=== PATIENT | male | born 1980 | race Caucasian/White ===

== ENCOUNTER 2017-01-26 17:57 | Inpatient (IN) | payer BC ==
[~2017-01-26] VITALS: Ht 182.9 cm; Wt 90.5 kg
[~2017-01-26 17:57] MED LIST: CEPH500C2 PO; MULT-506 PO; OXYC-57 PO
[2017-01-26] MEDS ORDERED: EPP3/2 PO (18:56)
[2017-01-26] MEDS ORDERED: SODIUM CHLORIDE 0.9% 1000ML 1,000 ML IV ONE ×2 (19:00→22:00)
[2017-01-26 19:08] LABS: HEMATOCRIT 42.1 % (42-52); MEAN CELL VOLUME 91.5 fL (80-100); MEAN CORPUSCULAR HEMOGLOBIN 31.3 pg (25-34); MEAN CORPUSCULAR HGB CONC 34.2 g/dl (32-36); MEAN PLATELET VOLUME 11.3 fL (7.4-10.4); PLATELET COUNT 188 K/uL (130-400); WHITE BLOOD COUNT 24.98 K/uL (4.8-10.8)
[2017-01-26 19:21] LABS: URINE APPEARANCE CLEAR (CLEAR); URINE BILIRUBIN NEG (NEG); URINE COLOR YELLOW; URINE NITRITE NEG (NEG); URINE SPECIFIC GRAVITY 1.007 (1.000-1.030); UROBILINOGEN NEG (NEG); ZZUR CULT IF INDIC CLEAN CATCH NO
[2017-01-26 19:25] LABS: MANUAL MICROSCOPIC REQUIRED? NO; REVIEW REQ? NO
--- NOTE | 2017-01-26 19:26 | EMERGENCY ROOM VISIT NOTE ---
ED Visit Note First contact with patient: 18:25 Resident Physician Supervision Note: I was present with Dr. Richards during the history and exam. I discussed the case with the resident and agree with the findings and plan as documented in the note. Documented By: Kemal Montalvo
[2017-01-26 19:32] LABS: ALB/GLOB RATIO 0.8 (0.9-2); BUN/CREATININE RATIO 7.1 (10-20); CALCIUM 9.4 mg/dl (8.5-10.1); CREATININE 1.2 mg/dl (0.60-1.40); POTASSIUM 3.4 mmol/L (3.5-5.1)
[2017-01-26] MEDS ORDERED: ACET-1256 PO (19:39)
[2017-01-26] MEDS ORDERED: IBUP-103 PO (19:39)
--- NOTE | 2017-01-26 19:46 | DIAGNOSTIC IMAGING REPORT ---
CHEST 2 VIEWS ROUTINE CLINICAL HISTORY: Fever, elevated white count, tachycardia. COMPARISON STUDY: 11/18/2013 FINDINGS: The cardiac and mediastinal contours are normal. There is no evidence of focal pulmonary consolidation. There is no evidence of failure. No pleural effusions are visualized.[ IMPRESSION: No active disease in the chest. Electronically signed by: Sukhjinder Null M.D. 01/26/2017 7:45 PM Dictated Date/Time: 01/26/2017 7:44 PM
--- NOTE | 2017-01-26 20:00 | EMERGENCY ROOM VISIT NOTE ---
History First contact with patient: 18:25 Chief Complaint: FEVER Stated Complaint: HIGH FEVER,PCP SAID TO CHECK WBC History of Present Illness The patient is a 36 year old male who presents to the Emergency Room with complaints of fever. The patient states that 2 days ago he is experiencing diarrhea. He noted that the diarrhea gradually improved on its own after 2 days but since then over the past day he has had felt feverish. He saw his PCP today and apparently had a temperature of 103.5. PCP did lab work and remarked WBC count of 26, and an ESR 33. He is sent to the emergency room for further evaluation. He denies any shortness of breath, productive cough, wheezing. The patient denies any chest pain, palpitations, presyncope or syncope, orthopnea or lower extremity edema. He has not had any gastrointestinal symptoms including nausea, vomiting or constipation. As above he had diarrhea over the past 2 days but that is resolved. The patient has not had any dysuria or urinary frequency. She states that he has had a poor appetite but is been able to keep food and fluids down. Review of Systems See HPI for pertinent positives & negatives. A total of 10 systems reviewed and were otherwise negative. 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) Current/Historical Medications Scheduled Multivitamin (Multivitamin), 1 TAB PO DAILY Scheduled PRN Acetaminophen (Tylenol), 1,000 MG PO Q6 PRN for Pain or Fever Epinephrine (Epipen 2-Star), 0.3 MG PO UD PRN for ALLERGIC REACTION Ibuprofen Tab (Advil), 400 MG PO TID PRN for pt Allergies Bee stings Physical Exam Vital Signs Date Time Temp Pulse Resp B/P (MAP) Pulse Ox O2 Delivery O2 Flow Rate FiO2 01/26/17 22:40 38.6 103 20 131/79 100 01/26/17 21:30 38.1 100 20 128/85 100 Room Air 01/26/17 20:10 37.6 102 18 121/78 96 01/26/17 18:07 37.8 109 20 159/75 99 Room Air Pain Rating (0-10): 0 Physical Exam Constitutional: Vital signs as above were reviewed. Eyes: Pupils equal, round, and reactive to light. Extraocular muscles are intact. No proptosis. No photophobia. ENT: Mucous membranes are moist. Oropharynx is clear. No sinus tenderness. TMs are clear bilaterally. Cardiovascular: Heart with a regular rate and rhythm. Pulses are palpable and symmetric in all 4 extremities. No pedal edema appreciated. Respiratory: Lungs clear to auscultation bilaterally. No wheezes, rales, or rhonchi appreciated. No accessory muscle use. No retractions. No increased work of breathing. GI: Abdomen soft, nontender, nondistended. Normal active bowel sounds. No abdominal hernias appreciated. No rebound. No guarding. : No CVA tenderness appreciated. The patient has Gold mena powder on his penis, a long-standing rash No testicular tenderness No meatal discharge Musculoskeletal: No midline cervical or vertebral tenderness. No gross deformities. No bony tenderness. No calf swelling or tenderness. Integumentary: Warm, dry, no rashes appreciated. Neurological: Patient awake, alert, and oriented x 3. Cranial nerves two through 12 grossly intact. Motor 5 out of 5 strength bilateral upper and lower extremities. Lymph: No cervical lymphadenopathy appreciated. Medical Decision & Procedures ER Provider Diagnostic Interpretation: [~ rep ct add3]] CHEST 2 VIEWS ROUTINE CLINICAL HISTORY: Fever, elevated white count, tachycardia. COMPARISON STUDY: 11/18/2013 FINDINGS: The cardiac and mediastinal contours are normal. There is no evidence of focal pulmonary consolidation. There is no evidence of failure. No pleural effusions are visualized.[ IMPRESSION: No active disease in the chest. Electronically signed by: Sukhjinder Null M.D. 01/26/2017 7:45 PM Dictated Date/Time: 01/26/2017 7:44 PM The status of this report is Signed. Draft = Not yet reviewed or approved by Radiologist. Signed = Reviewed and approved by Radiologist. Laboratory Results Test 01/26/17 18:40 01/26/17 19:05 01/26/17 19:40 01/26/17 22:00 Red Blood Cell Morphology Unremarkable Peripheral Blood Smear Path Consult Erythrocyte Sedimentation Rate 47 mm/hr (0-14) Prothrombin Time 11.2 SECONDS (9.0-12.0) Prothromb Time International Ratio 1.0 (0.9-1.1) Activated Partial Thromboplast Time 33.8 SECONDS (21.0-31.0) Partial Thromboplastin Ratio 1.3 Total Bilirubin 0.9 mg/dl (0.2-1) Aspartate Amino Transf (AST/SGOT) 16 U/L (15-37) Alanine Aminotransferase (ALT/SGPT) 19 U/L (12-78) Alkaline Phosphatase 81 U/L (45-117) Total Creatine Kinase 102 U/L (39-308) C-Reactive Protein 11.10 mg/dl (0-0.29) Total Protein 8.1 gm/dl (6.4-8.2) Albumin 3.7 gm/dl (3.4-5.0) Globulin 4.4 gm/dl (2.5-4.0) Albumin/Globulin Ratio 0.8 (0.9-2) Lyme Disease IgG Antibody NEG (NEG) Lyme Disease IgM Antibody NEG (NEG) Urine Color YELLOW Urine Appearance CLEAR (CLEAR) Urine pH 7.0 (4.5-7.5) Urine Specific [place] 1.007 (1.000-1.030) Urine Protein 1+ (NEG) Urine Glucose (UA) NEG (NEG) Urine Ketones TRACE (NEG) Urine Occult Blood TRACE (NEG) Urine Nitrite NEG (NEG) Urine Bilirubin NEG (NEG) Urine Urobilinogen NEG (NEG) Urine Leukocyte Esterase TRACE (NEG) Urine WBC (Auto) 5-10 /hpf (0-5) Urine RBC (Auto) 0-4 /hpf (0-4) Urine Hyaline Casts (Auto) 0 /lpf (0-5) Urine Epithelial Cells (Auto) 10-20 /lpf (0-5) Urine Bacteria (Auto) NEG (NEG) Lactic Acid Level 0.9 mmol/L (0.4-2.0) Influenza Type A (RT-PCR) Neg for Influ A (NEG) Influenza Type A Antigen Neg for Influ A (NEG) Influenza Type B Antigen Neg for Influ B (NEG) Influenza Type B (RT-PCR) Neg for Influ B (NEG) Medications Administered Medications (Trade) Dose Ordered Sig/Holden Route Start Time Stop Time Status Last Admin Dose Admin Sodium Chloride 1,000 ml @ 999 mls/hr Q1H1M ONCE IV 01/26/17 19:00 01/26/17 20:00 DC 10/10/17 18:59 999 MLS/HR Acetaminophen (Tylenol Tab) 1,000 mg NOW STAT PO 01/26/17 21:51 01/26/17 21:52 DC 01/26/17 21:58 1,000 MG Sodium Chloride 1,000 ml @ 999 mls/hr Q1H1M ONCE IV 01/26/17 22:00 01/26/17 23:00 DC 01/26/17 22:55 999 MLS/HR Acetaminophen (Tylenol Tab) 650 mg Q4H PRN PO 01/26/17 23:00 02/25/17 22:59 01/27/17 11:42 650 MG ED Course 18:40 - Patient was seen by Dr. Peter Richards, [address] Medicine 19:00 - Labs ordered Discussed case with Dr. Tal Montalvo, Attending Physician 20:00 - CPK added 20:30 - labs reviewed; please see confirmed to be elevated at 24 ` Chest x-ray grossly normal; UA remarkable for leukocyte esterase without nitrites 21:45 - Lyme and Flu ordered on patient 22:00 - Decision made to admit patient Discussed case with Dr. Chaves who will evaluate and admit the patient. Medical Decision The patient is a healthy 36-year-old male, presents with fevers for 1 day and leukocytosis of 26 found in the outpatient setting. PCP was concerned and requested patient be evaluated in the emergency department for possible source. The patient was evaluated in the emergency department. He did have elevated temperature and was mildly tachycardic. Interestingly on exam he appeared fairly well without overt signs of systemic toxicity. Initial labs did confirm the presence of a leukocytosis at 24. BMP was remarkable for a mildly decreased sodium at 134 and a mildly decreased potassium at 3.4. Chest x-ray was unimpressive did not reveal pneumonia as a source. The UA was also fairly unremarkable with only leukocyte esterase is positive but in the absence of urinary symptoms I would not attribute his leukocytosis to UTI unless he has bacterial growth in the culture. Blood cultures were promptly obtained however we did not administer empiric antibiotics as we cannot identify clear source of the infection, and the patient actually appeared fairly well at the bedside. Decision was made to admit the patient for further workup and evaluation. Additional studies including rapid flu testing and Lyme testing for added to his panel as well as a pro-calcitonin, as per my discussion with Dr. Chaves when he agreed to accept the patient Head Trauma GCS Score: 15 Medication Reconcilliation Current Medication List: was personally reviewed by me Blood Pressure Screening Patient's blood pressure: Elevated blood pressure Blood pressure disposition: Elevated BP felt to be situational Impression Primary Impression: SIRS (systemic inflammatory response syndrome) Departure Information Dispostion Being Evaluated By Hospitalist Referrals Pa Hester M.D. (PCP) Patient Instructions [facility]
[2017-01-26 20:04] LABS: BASO % 0.1 %; BASO ABS # 0.03 K/uL (0-0.2); COMPLETE YES; IG% 0.5 %; LYMPH ABS # 1.76 K/uL (1.2-3.4); MONO % 9.1 %; NEUT % 83.3 %
[2017-01-26] MEDS ORDERED: ACETAMINOPHEN 500 MG TAB PO STA (21:51)
[2017-01-26 22:29] LABS: LYME DISEASE AB IGG NEG (NEG); LYME DISEASE AB IGM NEG (NEG)
--- NOTE | 2017-01-26 22:59 | History and Physical ---
History & Physical Date & Time of Service: Jan 26, 2017 at 22:59 Chief Complaint: High Fever,Pcp Said To Check Wbc Primary Care Physician: Pa Hester M.D. History of Present Illness Source: patient Patient is a 36 Yr male with GERD s/p Jeffrey Fundoplication and no other significant PMH presents with history of fever, chills since 2-3 days duration. Patient had diarrhea few days which resolved 2 days ago. Patient visited his PCP 's office and was found to be febrile- 103.5 F and elevated WBC and was sent to ED for further evaluation. Patient states patient has been having Epson Salt baths since November and states his does prostatic massage every other day as he believed that it would help him with enlarged prostate which is not officially diagnosed not he has seen an Urologist in the past. Patient states he had Epididymitis in Set which e was treated with Levaquin. Currently denies any rash, urethral discharge, dysuria, hematuria, weak urinary stream. Also denies any chest pain, SOB, abd pain, cough, wheezing, palpitations, dizziness, nausea, vomiting. 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 A total of 10 systems reviewed and were otherwise negative. Physical Exam Vital Signs Date Time Temp Pulse Resp B/P (MAP) Pulse Ox O2 Delivery O2 Flow Rate FiO2 01/26/17 22:40 38.6 103 20 131/79 100 01/26/17 21:30 38.1 100 20 128/85 100 Room Air 01/26/17 20:10 37.6 102 18 121/78 96 01/26/17 18:07 37.8 109 20 159/75 99 Room Air General Appearance: WD/WN, no apparent distress Head: normocephalic, atraumatic Eyes: normal inspection, PERRL, EOMI, sclerae normal ENT: normal ENT inspection, hearing grossly normal Neck: supple, no JVD, trachea midline Respiratory/Chest: chest non-tender, lungs clear, normal breath sounds, no respiratory distress, no accessory muscle use Cardiovascular: regular rate, rhythm, no edema, no murmur, + tachycardia Abdomen/GI: normal bowel sounds, non tender, soft Genitourinary - Male: normal male genitalia, no urethral discharge Back: normal inspection Extremities/Musculoskelatal: normal inspection, no pedal edema Neurologic/Psych: historical records administrator II-XII nml as tested, no motor/sensory deficits, alert, normal mood/affect, oriented x 3 Skin: normal color, warm/dry Lymphatic: no adenopathy Diagnostics Laboratory Results Results Past 24 Hours Test 01/26/17 18:40 01/26/17 19:05 01/26/17 19:40 01/26/17 22:00 Range/Units White Blood Count 24.98 4.8-10.8 K/uL Red Blood Count 4.60 4.7-6.1 M/uL Hemoglobin 14.4 14.0-18.0 g/dL Hematocrit 42.1 42-52 % Mean Corpuscular Volume 91.5 80-100 fL Mean Corpuscular Hemoglobin 31.3 25-34 pg Mean Corpuscular Hemoglobin Concent 34.2 32-36 g/dl Platelet Count 188 130-400 K/uL Mean Platelet Volume 11.3 7.4-10.4 fL Neutrophils (%) (Auto) 83.3 % Lymphocytes (%) (Auto) 7.0 % Monocytes (%) (Auto) 9.1 % Eosinophils (%) (Auto) 0.0 % Basophils (%) (Auto) 0.1 % Neutrophils # (Auto) 20.80 1.4-6.5 K/uL Lymphocytes # (Auto) 1.76 1.2-3.4 K/uL Monocytes # (Auto) 2.27 0.11-0.59 K/uL Eosinophils # (Auto) 0.00 0-0.5 K/uL Basophils # (Auto) 0.03 0-0.2 K/uL RDW Standard Deviation 42.9 36.4-46.3 fL RDW Coefficient of Variation 12.8 11.5-14.5 % Immature Granulocyte % (Auto) 0.5 % Immature Granulocyte # (Auto) 0.12 0.00-0.02 K/uL Red Blood Cell Morphology Unremarkable Erythrocyte Sedimentation Rate 47 0-14 mm/hr Sodium Level 134 136-145 mmol/L Potassium Level 3.4 3.5-5.1 mmol/L Chloride Level 100 98-107 mmol/L Carbon Dioxide Level 28 21-32 mmol/L Anion Gap 7.0 3-11 mmol/L Blood Urea Nitrogen 9 7-18 mg/dl Creatinine 1.20 0.60-1.40 mg/dl Est Creatinine Clear Calc Drug Dose 92.5 ml/min Estimated GFR () 89.0 Estimated GFR (Non- 76.8 BUN/Creatinine Ratio 7.1 10-20 Random Glucose 113 70-99 mg/dl Calcium Level 9.4 8.5-10.1 mg/dl Total Bilirubin 0.9 0.2-1 mg/dl Aspartate Amino Transf (AST/SGOT) 16 15-37 U/L Alanine Aminotransferase (ALT/SGPT) 19 12-78 U/L Alkaline Phosphatase 81 45-117 U/L Total Creatine Kinase 102 39-308 U/L Total Protein 8.1 6.4-8.2 gm/dl Albumin 3.7 3.4-5.0 gm/dl Globulin 4.4 2.5-4.0 gm/dl Albumin/Globulin Ratio 0.8 0.9-2 Procalcitonin 1.54 0-0.5 ng/ml Lyme Disease IgG Antibody NEG NEG Lyme Disease IgM Antibody NEG NEG Urine Color YELLOW Urine Appearance CLEAR CLEAR Urine pH 7.0 4.5-7.5 Urine Specific [place] 1.007 1.000-1.030 Urine Protein 1+ NEG Urine Glucose (UA) NEG NEG Urine Ketones TRACE NEG Urine Occult Blood TRACE NEG Urine Nitrite NEG NEG Urine Bilirubin NEG NEG Urine Urobilinogen NEG NEG Urine Leukocyte Esterase TRACE NEG Urine WBC (Auto) 5-10 0-5 /hpf Urine RBC (Auto) 0-4 0-4 /hpf Urine Hyaline Casts (Auto) 0 0-5 /lpf Urine Epithelial Cells (Auto) 10-20 0-5 /lpf Urine Bacteria (Auto) NEG NEG Lactic Acid Level 0.9 0.4-2.0 mmol/L Influenza Type A Antigen Neg for Influ A NEG Influenza Type B Antigen Neg for Influ B NEG Microbiology Results 01/26/17 Blood Culture, Received Pending 01/26/17 Blood Culture, Received Pending 01/26/17 Urine Culture, Received Pending Diagnostic Radiology CXR: No active disease in the chest. Impression Assessment and Plan SIRS: Presented with Fever, Tachycardia, leukocytosis No obvious source. Likely source could be secondary to prostatic massage Start on IV zosyn empirically Lactate: normal, elevated procalcitonin IV fluids Blood/Urine culture Lyme/Influenza negative [place] test and Neisseria negative (Outpatient) Follow up with pending Outpatient labs MRSA screen pending Hypokalemia: Replace and monitor H/O GERD S/P Jeffrey Fundoplication Stable Not on any meds H/O Insomnia: Previously on amitriptyline (Stopped 6 months ago) DVT Px: Lovenox SQ Code Status: Full Code Disposition; Monitor in Tele
[2017-01-26] MEDS ORDERED: ONDANSETRON INJ 2 MG/ML 2 ML VIAL IV PRN (23:00)
[2017-01-26 23:08] LABS: C-REACTIVE PROTEIN 11.1 mg/dl (0-0.29)
[2017-01-26] MEDS ORDERED: PIPERACILL/TAZOBAC CONSULT ACTIVE PRN (23:30)
[2017-01-26 23:46] VITALS: BP 130/73; PULSE 100; TEMP 38.4; Ht 182.9 cm; Wt 90.5 kg
[2017-01-26 23:56] LABS: INFLUENZA A PCR Neg for Influ A (NEG); INFLUENZA B PCR Neg for Influ B (NEG)
[2017-01-27] VITALS (9 sets, daily range): BP systolic 107–133; BP diastolic 66–92; PULSE 77–103; TEMP 37–37.9; O2SAT 94–96
[2017-01-27] MEDS ORDERED: POTASSIUM CHLORIDE 10 MEQ TABCR PO SCH
[2017-01-27 00:21] LABS: PARTIAL THROMBOPLASTIN RATIO 1.3; PROTHROMBIN TIME (PATIENT) 11.2 SECONDS (9.0-12.0)
[2017-01-27] MEDS: ACETAMINOPHEN 325 MG TAB PO PRN ×5 (00:22→22:06)
[2017-01-27] MEDS ORDERED: PIPERACILL/TAZOBAC IV 3.375 GM in DEXTROSE 5% 100ML IV ONE (01:15)
[2017-01-27] MEDS: NSS + 20MEQ KCL 1000ML 1,000 ML IV SCH ×3 (02:38→21:01)
[2017-01-27] MEDS: PIPERACILL/TAZOBAC IV 3.375 GM in DEXTROSE 5% 100ML 100 ML IV SCH ×3 (05:39→21:02)
[2017-01-27] MEDS: ENOXAPARIN 40 MG/0.4 ML SYR SC SCH (07:55)
[2017-01-27 08:15] LABS: HEMATOCRIT 39.6 % (42-52); MEAN CELL VOLUME 91.9 fL (80-100); MEAN CORPUSCULAR HEMOGLOBIN 31.1 pg (25-34); MEAN CORPUSCULAR HGB CONC 33.8 g/dl (32-36); MEAN PLATELET VOLUME 10.8 fL (7.4-10.4); PLATELET COUNT 186 K/uL (130-400); RED BLOOD COUNT 4.31 M/uL (4.7-6.1); WHITE BLOOD COUNT 22.09 K/uL (4.8-10.8)
[2017-01-27 08:36] LABS: BUN/CREATININE RATIO 8.1 (10-20); CALCIUM 8.8 mg/dl (8.5-10.1); MAGNESIUM 2.2 mg/dl (1.8-2.4); POTASSIUM 3.8 mmol/L (3.5-5.1)
[2017-01-27 08:56] LABS: BASO % 0.1 %; BASO ABS # 0.02 K/uL (0-0.2); COMPLETE YES; IG% 0.5 %; LYMPH % 7.8 %; LYMPH ABS # 1.72 K/uL (1.2-3.4); MONO % 10.6 %; VACUOLIZATION 1+
[2017-01-27] MEDS ORDERED: OPTIRAY 320 IV PRN (11:45)
[2017-01-27] MEDS ORDERED: LEVOFLOXACIN / D5W 750 MG in PREMIXED IN D5W 150 ML IV SCH (13:00)
--- NOTE | 2017-01-27 13:03 | DIAGNOSTIC IMAGING REPORT ---
ABD/PELVIS IV CONTRAST ONLY CLINICAL HISTORY: 36 years-old Male presenting with fever of unknown origin, possible prostatitis. TECHNIQUE: Multidetector CT of the abdomen and pelvis was performed after the administration of intravenous contrast. IV contrast: 93 mL of Optiray 320. A dose lowering technique was used consistent with the principles of ALARA (as low as reasonably achievable). COMPARISON: 11/18/2013. CT DOSE (mGy.cm): The estimated cumulative dose is 733.54. FINDINGS: Rn Stars topogram: Unremarkable. Lung bases: Minimal dependent changes likely atelectasis. Normal heart size. No pericardial or pleural effusion. Liver: Normal morphology. No liver lesion. Patent hepatic vasculature. Biliary: No intrahepatic or extrahepatic biliary ductal dilatation. Normal gallbladder. Pancreas: Normal. Spleen: Normal. Adrenal glands: Normal. Kidneys and ureters: Heterogeneity of enhancement of the upper pole of the right kidney with relative hypoperfusion and mild regional perinephric fat stranding. A similar focal regional hypoperfusion heterogeneous region is noted at the lateral lower pole of the left kidney. No hydronephrosis. Mild urothelial thickening may be present. Excretion of contrast from the bilateral kidneys. Distal ureters poorly assessed secondary to paucity of intra-abdominal fat. Allowing for this, the left ureter is dilated throughout. Bladder: Mild circumferential bladder wall thickening. Pelvic organs: Prostate is enlarged for age with distended seminal vesicles. Bowel: Evaluation of the bowel is limited given the absence of oral contrast. Nondependent gas in the right lower quadrant is likely within small bowel. Mild wall thickening of the terminal ileum is difficult to exclude. The appendix is not clearly visualized. Postsurgical changes at the gastroesophageal junction may suggest prior Jeffrey fundoplication. Peritoneal cavity: Small free fluid in the pelvis. Lymph nodes: No enlarged lymph nodes in the abdomen or pelvis. Vasculature: Aorta and IVC patent and normal in caliber. Abdominal wall: Mild anasarca. Musculoskeletal: Normal. IMPRESSION: 1. Focal heterogeneity and hypoperfusion at the upper pole the right kidney and lower pole the left kidney combined with mild perinephric stranding and bladder wall thickening is most suggestive of lobar nephronia/focal pyelonephritis. Correlate with urinalysis. No renal abscess. Diffuse dilation of the left ureter without evidence of hydronephrosis or obstructing calculus or mass, possibly reactive hypoperistalsis. 2. The prostate is enlarged for the patient's age. Prostatitis is difficult to exclude and would be better evaluated with contrast-enhanced prostate MR. 3. Small amount of free fluid in the pelvis is likely reactive. Electronically signed by: Brendon Gatica M.D. 01/27/2017 1:01 PM Dictated Date/Time: 01/27/2017 12:53 PM
--- NOTE | 2017-01-27 13:03 | DIAGNOSTIC IMAGING REPORT ---
CT SCAN OF THE CHEST WITH IV CONTRAST CLINICAL HISTORY: Fever. COMPARISON STUDY: Chest x-ray dated 01/26/2017. TECHNIQUE: Following the IV administration of 93 cc of Optiray 320, CT scan of the thorax was performed from the thoracic inlet to the upper abdomen. Images are reviewed in the axial, sagittal, and coronal planes. IV contrast was administered without complication. A dose lowering technique was utilized adhering to the principles of ALARA. CT DOSE: 733.54 mGy.cm FINDINGS: Thyroid: Imaged portions of the thyroid gland are normal in size and attenuation. Thoracic aorta: The thoracic aorta is normal in caliber and demonstrates standard 3-vessel arch anatomy. No dissection is seen. Pulmonary vasculature: The pulmonary trunk is normal in caliber. There are no filling defects identified in the central pulmonary vessels to indicate pulmonary embolus. Note that this examination was not protocoled for evaluation of the pulmonary arteries. Heart: The heart is normal in size and configuration, and without pericardial effusion. Lungs and pleural spaces: There are trace pleural effusions. No airspace consolidation is seen typical for pneumonia. The trachea and central airways are clear. Mediastinum: There is no mediastinal lymphadenopathy. Anupama: Clear. Axillae: There is no axillary lymphadenopathy. Upper abdomen: Postoperative change is seen at the gastroesophageal junction. There is heterogeneous diminished perfusion in the upper pole the right kidney with mild surrounding inflammation. Skeletal structures: No lytic or blastic bony lesions are seen. Trace gas is present within the joint space of the right shoulder. IMPRESSION: 1. There is no airspace consolidation identified typical for pneumonia. Trace pleural effusions are noted. 2. There is heterogeneously diminished perfusion of the upper pole of the right kidney which is only partially imaged. The appearance suggests pyelonephritis. Correlation with clinical findings and urinalysis will be required. See report of abdominal CT performed concurrently for detailed intra-abdominal findings. Electronically signed by: Mannie Alicea M.D. 01/27/2017 1:02 PM Dictated Date/Time: 01/27/2017 12:55 PM
[2017-01-27] MEDS: LACTOBACILLUS ACIDOPHILUS (FLORANEX) TAB PO SCH (17:10)
--- NOTE | 2017-01-27 18:34 | Progress Note ---
Internal Med Progress Note Date of Service: Jan 27, 2017. Provider Documentation: SUBJECTIVE: spiking temp since last few days no sob or cough no nausea or diarrhea no abdominal pain says his was giving prostate massage somewhat shaky OBJECTIVE: Vital Signs-as noted below Exam: General-alert and awake. Not in distress ENT-normal hearing Neck-no neck masses Lungs-cta b/l no wheezing or crackles Heart-s1 and s2 heard regular rate and rhythm no murmurs Abdomen-soft bowel sounds present non tender no distension Extremities-no erythema no edema Neuro-alert and awake moves extremities Lab data as noted below. ASSESSMENT & PLAN: Pyelonephritis Prostatitis?: Presented with Fever, Tachycardia, leukocytosis Lactate: normal, elevated procalcitonin IV fluids Lyme/Influenza negative Kern test and Neisseria negative (Outpatient) currently on iv Zosyn and Levaquin as per patient his was giving prostate massage ct chest unremarkable ct abd/pelvis shows pyelonephritis and possible prostatitis f/u cx await urology inputs Hypokalemia: Replace and monitor H/O GERD S/P Jeffrey Fundoplication Stable Not on any meds H/O Insomnia: Previously on amitriptyline (Stopped 6 months ago) DVT Px: Lovenox SQ Code Status: Full Code DISPOSITION to be determined Vital Signs: Date Time Temp Pulse Resp B/P (MAP) Pulse Ox O2 Delivery O2 Flow Rate FiO2 01/27/17 16:00 Room Air 01/27/17 14:55 37.4 96 18 126/77 (93) 95 01/27/17 11:50 Room Air 01/27/17 11:50 37.4 90 18 119/76 (90) 96 Room Air 01/27/17 09:00 37.2 01/27/17 07:59 37.9 87 18 107/67 (80) 94 Room Air 01/27/17 07:45 Room Air 01/27/17 06:26 37.8 01/27/17 04:00 Room Air 01/27/17 04:00 37.1 84 18 133/92 (106) 96 Room Air 01/27/17 02:05 37.0 01/26/17 23:46 38.4 100 17 130/73 Room Air 94.0 01/26/17 23:44 105 20 128/82 96 01/26/17 22:40 38.6 103 20 131/79 100 01/26/17 21:30 38.1 100 20 128/85 100 Room Air 01/26/17 20:10 37.6 102 18 121/78 96 Lab Results: Results Past 24 Hours Test 01/26/17 18:40 01/26/17 19:05 01/26/17 19:40 01/26/17 22:00 Range/Units White Blood Count 24.98 4.8-10.8 K/uL Red Blood Count 4.60 4.7-6.1 M/uL Hemoglobin 14.4 14.0-18.0 g/dL Hematocrit 42.1 42-52 % Mean Corpuscular Volume 91.5 80-100 fL Mean Corpuscular Hemoglobin 31.3 25-34 pg Mean Corpuscular Hemoglobin Concent 34.2 32-36 g/dl Platelet Count 188 130-400 K/uL Mean Platelet Volume 11.3 7.4-10.4 fL Neutrophils (%) (Auto) 83.3 % Lymphocytes (%) (Auto) 7.0 % Monocytes (%) (Auto) 9.1 % Eosinophils (%) (Auto) 0.0 % Basophils (%) (Auto) 0.1 % Neutrophils # (Auto) 20.80 1.4-6.5 K/uL Lymphocytes # (Auto) 1.76 1.2-3.4 K/uL Monocytes # (Auto) 2.27 0.11-0.59 K/uL Eosinophils # (Auto) 0.00 0-0.5 K/uL Basophils # (Auto) 0.03 0-0.2 K/uL RDW Standard Deviation 42.9 36.4-46.3 fL RDW Coefficient of Variation 12.8 11.5-14.5 % Immature Granulocyte % (Auto) 0.5 % Immature Granulocyte # (Auto) 0.12 0.00-0.02 K/uL Red Blood Cell Morphology Unremarkable Peripheral Blood Smear Path Consult Erythrocyte Sedimentation Rate 47 0-14 mm/hr Prothrombin Time 11.2 9.0-12.0 SECONDS Prothromb Time International Ratio 1.0 0.9-1.1 Activated Partial Thromboplast Time 33.8 21.0-31.0 SECONDS Partial Thromboplastin Ratio 1.3 Sodium Level 134 136-145 mmol/L Potassium Level 3.4 3.5-5.1 mmol/L Chloride Level 100 98-107 mmol/L Carbon Dioxide Level 28 21-32 mmol/L Anion Gap 7.0 3-11 mmol/L Blood Urea Nitrogen 9 7-18 mg/dl Creatinine 1.20 0.60-1.40 mg/dl Est Creatinine Clear Calc Drug Dose 92.5 ml/min Estimated GFR () 89.0 Estimated GFR (Non- 76.8 BUN/Creatinine Ratio 7.1 10-20 Random Glucose 113 70-99 mg/dl Calcium Level 9.4 8.5-10.1 mg/dl Total Bilirubin 0.9 0.2-1 mg/dl Aspartate Amino Transf (AST/SGOT) 16 15-37 U/L Alanine Aminotransferase (ALT/SGPT) 19 12-78 U/L Alkaline Phosphatase 81 45-117 U/L Total Creatine Kinase 102 39-308 U/L C-Reactive Protein 11.10 0-0.29 mg/dl Total Protein 8.1 6.4-8.2 gm/dl Albumin 3.7 3.4-5.0 gm/dl Globulin 4.4 2.5-4.0 gm/dl Albumin/Globulin Ratio 0.8 0.9-2 Procalcitonin 1.54 0-0.5 ng/ml Lyme Disease IgG Antibody NEG NEG Lyme Disease IgM Antibody NEG NEG Urine Color YELLOW Urine Appearance CLEAR CLEAR Urine pH 7.0 4.5-7.5 Urine Specific [place] 1.007 1.000-1.030 Urine Protein 1+ NEG Urine Glucose (UA) NEG NEG Urine Ketones TRACE NEG Urine Occult Blood TRACE NEG Urine Nitrite NEG NEG Urine Bilirubin NEG NEG Urine Urobilinogen NEG NEG Urine Leukocyte Esterase TRACE NEG Urine WBC (Auto) 5-10 0-5 /hpf Urine RBC (Auto) 0-4 0-4 /hpf Urine Hyaline Casts (Auto) 0 0-5 /lpf Urine Epithelial Cells (Auto) 10-20 0-5 /lpf Urine Bacteria (Auto) NEG NEG Lactic Acid Level 0.9 0.4-2.0 mmol/L Influenza Type A (RT-PCR) Neg for Influ A NEG Influenza Type A Antigen Neg for Influ A NEG Influenza Type B Antigen Neg for Influ B NEG Influenza Type B (RT-PCR) Neg for Influ B NEG Test 01/27/17 07:58 Range/Units White Blood Count 22.09 4.8-10.8 K/uL Red Blood Count 4.31 4.7-6.1 M/uL Hemoglobin 13.4 14.0-18.0 g/dL Hematocrit 39.6 42-52 % Mean Corpuscular Volume 91.9 80-100 fL Mean Corpuscular Hemoglobin 31.1 25-34 pg Mean Corpuscular Hemoglobin Concent 33.8 32-36 g/dl Platelet Count 186 130-400 K/uL Mean Platelet Volume 10.8 7.4-10.4 fL Neutrophils (%) (Auto) 81.0 % Lymphocytes (%) (Auto) 7.8 % Monocytes (%) (Auto) 10.6 % Eosinophils (%) (Auto) 0.0 % Basophils (%) (Auto) 0.1 % Neutrophils # (Auto) 17.91 1.4-6.5 K/uL Lymphocytes # (Auto) 1.72 1.2-3.4 K/uL Monocytes # (Auto) 2.34 0.11-0.59 K/uL Eosinophils # (Auto) 0.00 0-0.5 K/uL Basophils # (Auto) 0.02 0-0.2 K/uL RDW Standard Deviation 43.5 36.4-46.3 fL RDW Coefficient of Variation 12.9 11.5-14.5 % Immature Granulocyte % (Auto) 0.5 % Immature Granulocyte # (Auto) 0.10 0.00-0.02 K/uL Toxic Vacuolation 1+ Sodium Level 138 136-145 mmol/L Potassium Level 3.8 3.5-5.1 mmol/L Chloride Level 108 98-107 mmol/L Carbon Dioxide Level 25 21-32 mmol/L Anion Gap 5.0 3-11 mmol/L Blood Urea Nitrogen 8 7-18 mg/dl Creatinine 1.00 0.60-1.40 mg/dl Est Creatinine Clear Calc Drug Dose 111.0 ml/min Estimated GFR () 110.9 Estimated GFR (Non- 95.7 BUN/Creatinine Ratio 8.1 10-20 Random Glucose 114 70-99 mg/dl Calcium Level 8.8 8.5-10.1 mg/dl Magnesium Level 2.2 1.8-2.4 mg/dl Procalcitonin 2.76 0-0.5 ng/ml Microbiology Results 01/26/17 Blood Culture, Received Pending 01/26/17 Blood Culture, Received Pending 01/27/17 MRSA DNA Surveillance Screen - Final, Complete Specimen Negative for MRSA by DNA Probe 01/26/17 Urine Culture - Preliminary, Resulted NO GROWTH - LESS THAN 1,000 COLONIES/...
--- NOTE | 2017-01-27 19:02 | Urology Consultation ---
History General Date of Service: Jan 27, 2017. Chief Complaint: fever Primary Care Physician: Pa Hester M.D. Pt seen a urologist before?: Yes If yes, why?: penile rash History of Present Illness I am asked by Dr Calhoun to evaluate and treat patient for fever. He began this illness with diarrhea on Wednesday 5 days ago. It resolved in a day. Then on Wednesday 3 days ago he began fevering. He also had some flank pain. he felt generally ill. He has had rigors. He has had little to no dysuria. He has chronic burning at tip of penis and medicates the skin there with gold mena powder. I saw him for a penile rash and urethral irritation in 2013. I did not find any pathology at that time. He had a right epididymal pain and swelling in november 2016. he had a scrotal ultrasound (which he was told was normal) and was treated with 10 days of levaquin lasting into december. he also had frequent colds in november and each head cold seemed to impair his urinary flow and to cause decreased erectile function. He started a herbal supplement for prostate health and it seemed to only worsen his symptoms. He read about and decided to try a home remedy of prostate massage as he felt on anal self exam that his prostate felt enlarged. He does feel that his urinary flow and erections improved with prostate massage. He never did see any purulent material expressed into the urethra after prostate massage. He never found the prostate massage to be painful. Here today he does not have dysuria, or flank pain. He feels generally poorly when he fevers. Imaging Imaging: CT Laboratory Results Past 24 Hours Test 01/26/17 19:05 01/26/17 19:40 01/26/17 22:00 01/27/17 07:58 Range/Units Urine Color YELLOW Urine Appearance CLEAR CLEAR Urine pH 7.0 4.5-7.5 Urine Specific [place] 1.007 1.000-1.030 Urine Protein 1+ NEG Urine Glucose (UA) NEG NEG Urine Ketones TRACE NEG Urine Occult Blood TRACE NEG Urine Nitrite NEG NEG Urine Bilirubin NEG NEG Urine Urobilinogen NEG NEG Urine Leukocyte Esterase TRACE NEG Urine WBC (Auto) 5-10 0-5 /hpf Urine RBC (Auto) 0-4 0-4 /hpf Urine Hyaline Casts (Auto) 0 0-5 /lpf Urine Epithelial Cells (Auto) 10-20 0-5 /lpf Urine Bacteria (Auto) NEG NEG Lactic Acid Level 0.9 0.4-2.0 mmol/L Influenza Type A (RT-PCR) Neg for Influ A NEG Influenza Type A Antigen Neg for Influ A NEG Influenza Type B Antigen Neg for Influ B NEG Influenza Type B (RT-PCR) Neg for Influ B NEG White Blood Count 22.09 4.8-10.8 K/uL Red Blood Count 4.31 4.7-6.1 M/uL Hemoglobin 13.4 14.0-18.0 g/dL Hematocrit 39.6 42-52 % Mean Corpuscular Volume 91.9 80-100 fL Mean Corpuscular Hemoglobin 31.1 25-34 pg Mean Corpuscular Hemoglobin Concent 33.8 32-36 g/dl Platelet Count 186 130-400 K/uL Mean Platelet Volume 10.8 7.4-10.4 fL Neutrophils (%) (Auto) 81.0 % Lymphocytes (%) (Auto) 7.8 % Monocytes (%) (Auto) 10.6 % Eosinophils (%) (Auto) 0.0 % Basophils (%) (Auto) 0.1 % Neutrophils # (Auto) 17.91 1.4-6.5 K/uL Lymphocytes # (Auto) 1.72 1.2-3.4 K/uL Monocytes # (Auto) 2.34 0.11-0.59 K/uL Eosinophils # (Auto) 0.00 0-0.5 K/uL Basophils # (Auto) 0.02 0-0.2 K/uL RDW Standard Deviation 43.5 36.4-46.3 fL RDW Coefficient of Variation 12.9 11.5-14.5 % Immature Granulocyte % (Auto) 0.5 % Immature Granulocyte # (Auto) 0.10 0.00-0.02 K/uL Toxic Vacuolation 1+ Sodium Level 138 136-145 mmol/L Potassium Level 3.8 3.5-5.1 mmol/L Chloride Level 108 98-107 mmol/L Carbon Dioxide Level 25 21-32 mmol/L Anion Gap 5.0 3-11 mmol/L Blood Urea Nitrogen 8 7-18 mg/dl Creatinine 1.00 0.60-1.40 mg/dl Est Creatinine Clear Calc Drug Dose 111.0 ml/min Estimated GFR () 110.9 Estimated GFR (Non- 95.7 BUN/Creatinine Ratio 8.1 10-20 Random Glucose 114 70-99 mg/dl Calcium Level 8.8 8.5-10.1 mg/dl Magnesium Level 2.2 1.8-2.4 mg/dl Procalcitonin 2.76 0-0.5 ng/ml Microbiology Results 01/26/17 Blood Culture, Received Pending 01/27/17 MRSA DNA Surveillance Screen - Final, Complete Specimen Negative for MRSA by DNA Probe 01/26/17 Urine Culture - Preliminary, Resulted NO GROWTH - LESS THAN 1,000 COLONIES/... Labs were reviewed and are within normal limits unless listed below. 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) Allergies Coded Allergies: BEE STING (Verified Allergy, Unknown, ., 11/06/13) Medications Home Medications: Home Meds and Scripts Medications Dose Route/Sig Max Daily Dose Days Date Category Advil (Ibuprofen) 200 Mg Tab 400 Mg PO TID PRN 01/26/17 Reported Tylenol (Acetaminophen) 500 Mg Tab 1,000 Mg PO Q6 PRN 01/26/17 Reported Epipen 2-Star (Epinephrine) 0.3 Mg Inj 0.3 Mg PO UD PRN 11/18/13 Reported Multivitamin (Multivitamins) Tab 1 Tab PO DAILY 11/06/13 Reported Inpatient Medications: Current Inpatient Medications Medications (Trade) Dose Ordered Sig/Holden Route Start Time Stop Time Status Last Admin Dose Admin Enoxaparin Sodium (Lovenox Inj) 40 mg Q24H SC 01/27/17 09:00 02/26/17 08:59 01/27/17 07:55 40 MG Potassium Chloride/Sodium Chloride 1,000 ml @ 100 mls/hr Q10H IV 01/27/17 01:30 02/26/17 01:29 01/27/17 12:12 100 MLS/HR Acetaminophen (Tylenol Tab) 650 mg Q4H PRN PO 01/26/17 23:00 02/25/17 22:59 01/27/17 15:51 650 MG Ondansetron HCl (Zofran Inj) 4 mg Q6H PRN IV 01/26/17 23:00 02/25/17 22:59 Piperacillin Sod/ Tazobactam Sod 3.375 gm/Dextrose 115 ml @ 28.75 mls/ hr Q8H IV 01/27/17 06:00 02/06/17 05:59 01/27/17 13:30 28.75 MLS/HR Piperacillin Sod/ Tazobactam Sod (Consult) 1 ea UD PRN N/A 01/26/17 23:30 02/25/17 23:29 Levofloxacin 750 mg/Prmx 150 ml @ 100 mls/hr Q24H IV 01/27/17 13:00 02/03/17 12:59 01/27/17 13:30 100 MLS/HR Ioversol (Optiray 320) 125 ml UD PRN IV 01/27/17 11:45 01/31/17 11:44 Lactobacillus Acidophilus (Floranex Tab) 4 tab TIDM PO 01/27/17 17:00 02/26/17 16:59 01/27/17 17:10 4 TAB Review of Systems Review of Systems Constitutional: + fever, + chills Endocrine: + excessive thirst, + too cold, + tired/sluggish Gastrointestinal: + nausea, + diarrhea, No abdominal pain, No indigestion, No vomiting, No constipation Cardiovascular: No chest pain, No palpitations, No swelling ankles/feet Respiratory: No shortness of breath, No chronic cough Musculoskeletal: No neck pain Male : + weak stream, + infections, + nocturia more than once/night, + sexual dysfunction, No frequent urination, No painful urination Physical Exam Vital Signs: Vital Signs Past 12 Hours Date Time Temp Pulse Resp B/P (MAP) Pulse Ox O2 Delivery O2 Flow Rate FiO2 01/27/17 16:00 Room Air 01/27/17 14:55 37.4 96 18 126/77 (93) 95 01/27/17 11:50 Room Air 01/27/17 11:50 37.4 90 18 119/76 (90) 96 Room Air 01/27/17 09:00 37.2 01/27/17 07:59 37.9 87 18 107/67 (80) 94 Room Air 01/27/17 07:45 Room Air Physical Exam: General Appearance: WD/WN, no apparent distress, + thin, + pertinent finding ( not toxic, alert and awake, sot spoken) Eyes: bilateral eyes normal inspection ENT: hearing grossly normal Neck: no adenopathy, no JVD, trachea midline Respiratory/Chest: normal breath sounds, no respiratory distress, no accessory muscle use Gastrointestinal: Abdomen: normal abdomen Bladder: normal bladder Renal: normal renal Liver: normal liver Genitourinary - Male: Penis: normal penis Urethral Meatus: normal urethral meatus Testes: normal testes Anus / Perineum: normal anus/perineum Sphincter Tone: normal sphincter tone Prostate: normal prostate, size (40 grams ), pertinent finding (not boggy and not tender) Extremities: non-tender, normal inspection, no pedal edema, no calf tenderness , normal capillary refill Neurologic/Psychiatric: alert, normal mood/affect, oriented x 3 Skin: normal color, warm/dry, no rash Lymphatic: no adenopathy Assessment & Plan Assessment & Plan severe febrile illness no source identified. he is not presenting like a typical prostatitis they are usually exquisitely tender at the prostate. He also does not have the typical severe LUTS of a prostatitis. Urine culture is also surprisingly normal. He states he did NOT receive any antibiotics prior to his presentation at ER. There is free fluid in pelvis on the CT, the bladder is thin walled, the prostate does not look inflamed. The kidneys look like they have subsegmental infection , upper right kidney and lower pole left kidney. We need to consider septic emboli with this presentation. Surprisingly he is not having the typical amount of severe kidney pain we usually see with a soft tissue infection of the kidneys. Agree with broad spectrum abt. await blood cultures.
[2017-01-28 04:24] VITALS: BP 116/72; PULSE 69; TEMP 36.7; O2SAT 98
[2017-01-28] MEDS: PIPERACILL/TAZOBAC IV 3.375 GM in DEXTROSE 5% 100ML 100 ML IV SCH (05:55)
[2017-01-28] MEDS: NSS + 20MEQ KCL 1000ML 1,000 ML IV SCH ×2 (05:57→17:08)
[2017-01-28 07:24] VITALS: BP 119/79; PULSE 76; TEMP 37.1; O2SAT 98
[2017-01-28] MEDS: ENOXAPARIN 40 MG/0.4 ML SYR SC SCH (07:50)
[2017-01-28] MEDS: LACTOBACILLUS ACIDOPHILUS (FLORANEX) TAB PO SCH ×3 (07:50→17:08)
--- NOTE | 2017-01-28 08:10 | Clinical Documentation Query ---
CLINICAL DOCUMENTATION QUERY 36 year old male who presents to the Emergency Room with complaints of fever and leukocytosis. In your clinical opinion is this patient being managed for: ( x ) Sepsis in setting of pyelonephritis/UTI treated with IVF boluses, IV antibiotics, UC, BCs ( ) Not Agree ( ) Other explanation of clinical findings (Please Explain) ( ) Unable to determine (Please Define) ( ) Need to Discuss The medical record reflects the following clinical findings, treatment, and risk factors. Clinical Indicators: fever 38.6, tachycardia 103, leukocytosis 24.98, ESR 47, Procalcitonin 2.76, and abdominal CT showed pyelonephritis. Treatment: IVF boluses, apap, IV Zosyn, IV Levofloxacin Risk Factors: Frequent prostate message with possible urethral contamination, urinary symptoms, Please clarify and document your clinical opinion in the progress notes and discharge summary. Terms such as "probable", "suspected", "likely", "questionable", "possible", or "still to be ruled out" are acceptable. IF IN AGREEMENT, YOU MUST DOCUMENT ABOVE DIAGNOSTIC STATEMENT IN DAILY PROGRESS NOTES AND DISCHARGE SUMMARY. This document is not part of the patient's record. Thank You, Go De La Garza, RN [phone]
[2017-01-28 08:12] LABS: BASO % 0.1 %; BASO ABS # 0.01 K/uL (0-0.2); COMPLETE YES; EOS % 0.1 %; IG% 0.1 %; LYMPH % 8.5 %; LYMPH ABS # 1.15 K/uL (1.2-3.4); MEAN CELL VOLUME 92.4 fL (80-100); MEAN CORPUSCULAR HEMOGLOBIN 31.9 pg (25-34); MEAN CORPUSCULAR HGB CONC 34.5 g/dl (32-36); MEAN PLATELET VOLUME 11.6 fL (7.4-10.4); MONO % 16.6 %; NEUT % 74.6 %; PLATELET COUNT 197 K/uL (130-400); RED BLOOD COUNT 4.33 M/uL (4.7-6.1); WHITE BLOOD COUNT 13.58 K/uL (4.8-10.8)
[2017-01-28 08:32] LABS: BUN/CREATININE RATIO 9.6 (10-20); CALCIUM 8.8 mg/dl (8.5-10.1); CREATININE 0.96 mg/dl (0.60-1.40); MAGNESIUM 2.3 mg/dl (1.8-2.4); POTASSIUM 3.9 mmol/L (3.5-5.1)
[2017-01-28] MEDS ORDERED: DOXYCYCLINE IV 100 MG in DEXTROSE 5% 100ML 100 ML IV SCH (09:00)
[2017-01-28 09:06] VITALS: O2SAT 98
--- NOTE | 2017-01-28 10:39 | Medical Consult ---
Consultation Date of Consultation: Jan 28, 2017. Attending Physician: Jeff Calhoun MD Reason for Consultation: Fever of unknown origin History of Present Illness 36-year-old male with history of GERD, Jeffrey fundoplication, prior history of epididymitis, who was admitted with several days of fever and rigors, with generalized aches and pains but no other localizing symptoms. Patient reports that he has been undergoing regular prostatic massage from his for several months. He was found to have significant leukocytosis and was admitted and started on broad-spectrum antibiotics. Thus far cultures have been all negative including urine cultures, urinalysis relatively benign, but CT of the abdomen shows distinct abnormalities in both kidneys which are consistent with localized infection. Patient notes that he has improved significantly since admission with now resolution of his rigors and has been afebrile since yesterday. White count has improved from [id number]. No other new complaints. 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) Allergies Coded Allergies: BEE STING (Verified Allergy, Unknown, ., 11/06/13) Current Inpatient Medications Current Inpatient Medications Medications (Trade) Dose Ordered Sig/Holden Route Start Time Stop Time Status Last Admin Dose Admin Enoxaparin Sodium (Lovenox Inj) 40 mg Q24H SC 01/27/17 09:00 02/26/17 08:59 01/28/17 07:50 40 MG Potassium Chloride/Sodium Chloride 1,000 ml @ 100 mls/hr Q10H IV 01/27/17 01:30 02/26/17 01:29 01/28/17 05:57 100 MLS/HR Acetaminophen (Tylenol Tab) 650 mg Q4H PRN PO 01/26/17 23:00 02/25/17 22:59 01/27/17 22:06 650 MG Ondansetron HCl (Zofran Inj) 4 mg Q6H PRN IV 01/26/17 23:00 02/25/17 22:59 Piperacillin Sod/ Tazobactam Sod 3.375 gm/Dextrose 115 ml @ 28.75 mls/ hr Q8H IV 01/27/17 06:00 02/06/17 05:59 01/28/17 05:55 28.75 MLS/HR Piperacillin Sod/ Tazobactam Sod (Consult) 1 ea UD PRN N/A 01/26/17 23:30 02/25/17 23:29 Ioversol (Optiray 320) 125 ml UD PRN IV 01/27/17 11:45 01/31/17 11:44 Lactobacillus Acidophilus (Floranex Tab) 4 tab TIDM PO 01/27/17 17:00 02/26/17 16:59 01/28/17 07:50 4 TAB Doxycycline Hyclate 100 mg/ Dextrose 110 ml @ 50 mls/hr BID IV 01/28/17 09:00 02/07/17 08:59 01/28/17 10:20 50 MLS/HR Review of Systems All systems were reviewed and are negative except as per HPI Physical Exam Date Time Temp Pulse Resp B/P (MAP) Pulse Ox O2 Delivery O2 Flow Rate FiO2 01/28/17 09:06 98 Room Air 01/28/17 07:45 Room Air 01/28/17 07:24 37.1 76 20 119/79 (92) 98 Room Air 01/28/17 04:24 36.7 69 16 116/72 (87) 98 Room Air 01/28/17 04:00 Room Air 01/28/17 00:00 Room Air 01/27/17 23:59 37.9 103 16 126/78 (94) 95 Room Air 01/27/17 20:00 Room Air 01/27/17 19:24 37.1 77 22 119/66 (83) 96 Room Air 01/27/17 16:00 Room Air 01/27/17 14:55 37.4 96 18 126/77 (93) 95 01/27/17 11:50 Room Air 01/27/17 11:50 37.4 90 18 119/76 (90) 96 Room Air General Appearance: WD/WN, no apparent distress Head: normocephalic, atraumatic Eyes: normal inspection, EOMI, sclerae normal ENT: normal ENT inspection, pharynx normal Neck: supple, no adenopathy, thyroid normal, trachea midline Respiratory/Chest: chest non-tender, lungs clear, normal breath sounds, no respiratory distress Cardiovascular: regular rate, rhythm, no gallop, no murmur Abdomen/GI: normal bowel sounds, non tender, soft, no organomegaly Back: normal inspection, no CVA tenderness Extremities/Musculoskelatal: normal inspection, no calf tenderness Neurologic/Psych: alert, normal mood/affect, oriented x 3 Skin: normal color, warm/dry, no rash Lymphatic: no adenopathy Laboratory Results RUN DATE: 01/28/17 [facility] LAB PAGE 1 RUN TIME: 725 Specimen Inquiry PATIENT: SHARMILA WALDRON LOC: [facility] # : [id number] AGE/SX: 36/M ROOM: [facility] REG : 01/26/[address]: Jeff Calhoun MD : 1980 BED: 1 DIS : STATUS: ADM IN TLOC: SPEC #: [id number] MIKAL: 01/26/17 STATUS: RES REQ #: [id number] RECD: 01/26/17 [facility] [address]: Peter Richards MD SOURCE: BLOOD ENTR: 01/26/[address] [facility] [address]: Kemal Montalvo DO [facility]: Pa Hester M.D. ORDERED: BLOOD CULTURE Procedure Result Verified Site BLD CULT Preliminary 01/28/17 NO GROWTH TO DATE. Last 24 Hours Test 01/28/17 07:24 01/28/17 07:52 White Blood Count 13.58 K/uL Red Blood Count 4.33 M/uL Hemoglobin 13.8 g/dL Hematocrit 40.0 % Mean Corpuscular Volume 92.4 fL Mean Corpuscular Hemoglobin 31.9 pg Mean Corpuscular Hemoglobin Concent 34.5 g/dl Platelet Count 197 K/uL Mean Platelet Volume 11.6 fL Neutrophils (%) (Auto) 74.6 % Lymphocytes (%) (Auto) 8.5 % Monocytes (%) (Auto) 16.6 % Eosinophils (%) (Auto) 0.1 % Basophils (%) (Auto) 0.1 % Neutrophils # (Auto) 10.12 K/uL Lymphocytes # (Auto) 1.15 K/uL Monocytes # (Auto) 2.26 K/uL Eosinophils # (Auto) 0.02 K/uL Basophils # (Auto) 0.01 K/uL RDW Standard Deviation 43.8 fL RDW Coefficient of Variation 12.9 % Immature Granulocyte % (Auto) 0.1 % Immature Granulocyte # (Auto) 0.02 K/uL Sodium Level 140 mmol/L Potassium Level 3.9 mmol/L Chloride Level 108 mmol/L Carbon Dioxide Level 27 mmol/L Anion Gap 5.0 mmol/L Blood Urea Nitrogen 9 mg/dl Creatinine 0.96 mg/dl Est Creatinine Clear Calc Drug Dose 115.7 ml/min Estimated GFR () 116.6 Estimated GFR (Non- 100.6 BUN/Creatinine Ratio 9.6 Random Glucose 89 mg/dl Calcium Level 8.8 mg/dl Magnesium Level 2.3 mg/dl Erythrocyte Sedimentation Rate 63 mm/hr ABD/PELVIS IV CONTRAST ONLY CLINICAL HISTORY: 36 years-old Male presenting with fever of unknown origin, possible prostatitis. TECHNIQUE: Multidetector CT of the abdomen and pelvis was performed after the administration of intravenous contrast. IV contrast: 93 mL of Optiray 320. A dose lowering technique was used consistent with the principles of ALARA (as low as reasonably achievable). COMPARISON: 11/18/2013. CT DOSE (mGy.cm): The estimated cumulative dose is 733.54. 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 Lung bases: Minimal dependent changes likely atelectasis. Normal heart size. No pericardial or pleural effusion. Liver: Normal morphology. No liver lesion. Patent hepatic vasculature. Biliary: No intrahepatic or extrahepatic biliary ductal dilatation. Normal gallbladder. Pancreas: Normal. Spleen: Normal. Adrenal glands: Normal. Kidneys and ureters: Heterogeneity of enhancement of the upper pole of the right kidney with relative hypoperfusion and mild regional perinephric fat stranding. A similar focal regional hypoperfusion heterogeneous region is noted at the lateral lower pole of the left kidney. No hydronephrosis. Mild urothelial thickening may be present. Excretion of contrast from the bilateral kidneys. Distal ureters poorly assessed secondary to paucity of intra-abdominal fat. Allowing for this, the left ureter is dilated throughout. Bladder: Mild circumferential bladder wall thickening. Pelvic organs: Prostate is enlarged for age with distended seminal vesicles. Bowel: Evaluation of the bowel is limited given the absence of oral contrast. Nondependent gas in the right lower quadrant is likely within small bowel. Mild wall thickening of the terminal ileum is difficult to exclude. The appendix is not clearly visualized. Postsurgical changes at the gastroesophageal junction may suggest prior Jeffrey fundoplication. Peritoneal cavity: Small free fluid in the pelvis. Lymph nodes: No enlarged lymph nodes in the abdomen or pelvis. Vasculature: Aorta and IVC patent and normal in caliber. Abdominal wall: Mild anasarca. Musculoskeletal: Normal. IMPRESSION: 1. Focal heterogeneity and hypoperfusion at the upper pole the right kidney and lower pole the left kidney combined with mild perinephric stranding and bladder wall thickening is most suggestive of lobar nephronia/focal pyelonephritis. Correlate with urinalysis. No renal abscess. Diffuse dilation of the left ureter without evidence of hydronephrosis or obstructing calculus or mass, possibly reactive hypoperistalsis. 2. The prostate is enlarged for the patient's age. Prostatitis is difficult to exclude and would be better evaluated with contrast-enhanced prostate MR. 3. Small amount of free fluid in the pelvis is likely reactive. Electronically signed by: Brendon Gatica M.D. 01/27/2017 1:01 PM Dictated Date/Time: 01/27/2017 12:53 PM The status of this report is Signed. Draft = Not yet reviewed or approved by Radiologist. Signed = Reviewed and approved by Radiologist. <AttendingPhy>Jeff Calhoun MD</AttendingPhy> <FamilyPhy>Pa Hester M.D.</FamilyPhy> <PrimaryPhy>Pa Hester M.D.</PrimaryPhy> <UnitNumber >[id number]</UnitNumber> <VisitNumber>[id number]</VisitNumber> <PatientName> SHARMILA WALDRON</PatientName> <DateOfBirth>1980</DateOfBirth> <Location> [facility]</Location> <ServiceDate>01/26/17</ServiceDate> <MNE>ESINDI</MNE> < OrderingPhy>PalepuJeff MD</OrderingPhy> <OrderingPhyMNE>f rep ord dr brewer </OrderingPhyMNE> <DictatingPhyMNE>f rep dict dr brewer</DictatingPhyMNE> < CCListMNE>f rep ct mne</CCListMNE> <AdmittingPhyMNE>f pt admit dr brewer</ AdmittingPhyMNE> <AttendingPhyMNE>f pt attend dr brewer</AttendingPhyMNE> <ConsultingPhyMNE>f pt consult dr brewer</ConsultingPhyMNE> <FamilyPhyMNE>f pt fam dr brewer</FamilyPhyMNE> <OtherPhyMNE>f pt other dr brewer</OtherPhyMNE> < PrimaryPhyMNE>f pt prim care dr brewer</PrimaryPhyMNE> <ReferringPhyMNE>f pt referring dr brewer</ReferringPhyMNE> Assessment & Plan 36-year-old male in reasonably good health presents with fever and leukocytosis , with possible bilateral kidney infections based on CT findings. Likely source would be transient seeding from prostatic massage. Patient appears to be responding to current antibiotics. I would recommend treatment for at least 14 days with follow-up CT scan prior to discontinuation, and may want to consider the use of ertapenem to allow easier outpatient therapy. Will discuss. Will follow.
[2017-01-28 11:05] VITALS: BP 125/74; PULSE 83; TEMP 37.1; O2SAT 100
[2017-01-28] MEDS: ERTAPENEM IV 1 GM in SODIUM CHLOR 0.9% AD-VAN 50ML 50 ML IV SCH (13:31)
[2017-01-28] MEDS: ACETAMINOPHEN 325 MG TAB PO PRN ×2 (13:32→21:12)
[2017-01-28 15:21] VITALS: BP 142/72; PULSE 90; TEMP 37.7; O2SAT 95
--- NOTE | 2017-01-28 18:13 | Progress Note ---
Internal Med Progress Note Date of Service: Jan 28, 2017. Provider Documentation: SUBJECTIVE: had mild temp spike today feeling better no more shaking no nausea no sob ambulating ok OBJECTIVE: Vital Signs-as noted below Exam: General-alert and awake. Not in distress ENT-normal hearing Neck-no neck masses Lungs-cta b/l no wheezing or crackles Heart-s1 and s2 heard regular rate and rhythm no murmurs Abdomen-soft bowel sounds present non tender no distension Extremities-no erythema no edema Neuro-alert and awake moves extremities Lab data as noted below. ASSESSMENT & PLAN: Pyelonephritis Prostatitis?: Presented with Fever, Tachycardia, leukocytosis Lactate: normal, elevated procalcitonin IV fluids Lyme/Influenza negative Uintah test and Neisseria negative (Outpatient) currently on iv Zosyn and Levaquin as per patient his was giving prostate massage ct chest unremarkable ct abd/pelvis shows pyelonephritis and possible prostatitis urine growing gm negative bacilli appreciate urology and id inputs changed abx to iv Invanz will monitor Hypokalemia: Replace and monitor H/O GERD S/P Jeffrey Fundoplication Stable Not on any meds H/O Insomnia: Previously on amitriptyline (Stopped 6 months ago) DVT Px: Lovenox SQ Code Status: Full Code DISPOSITION possible d/c in 1-2 days if stable Vital Signs: Date Time Temp Pulse Resp B/P (MAP) Pulse Ox O2 Delivery O2 Flow Rate FiO2 01/28/17 16:00 Room Air 01/28/17 15:21 37.7 90 18 142/72 (95) 95 Room Air 01/28/17 11:50 Room Air 01/28/17 11:05 37.1 83 16 125/74 (91) 100 Room Air 01/28/17 09:06 98 Room Air 01/28/17 07:45 Room Air 01/28/17 07:24 37.1 76 20 119/79 (92) 98 Room Air 01/28/17 04:24 36.7 69 16 116/72 (87) 98 Room Air 01/28/17 04:00 Room Air 01/28/17 00:00 Room Air 01/27/17 23:59 37.9 103 16 126/78 (94) 95 Room Air 01/27/17 20:00 Room Air 01/27/17 19:24 37.1 77 22 119/66 (83) 96 Room Air Lab Results: Results Past 24 Hours Test 01/28/17 07:24 01/28/17 07:52 Range/Units White Blood Count 13.58 4.8-10.8 K/uL Red Blood Count 4.33 4.7-6.1 M/uL Hemoglobin 13.8 14.0-18.0 g/dL Hematocrit 40.0 42-52 % Mean Corpuscular Volume 92.4 80-100 fL Mean Corpuscular Hemoglobin 31.9 25-34 pg Mean Corpuscular Hemoglobin Concent 34.5 32-36 g/dl Platelet Count 197 130-400 K/uL Mean Platelet Volume 11.6 7.4-10.4 fL Neutrophils (%) (Auto) 74.6 % Lymphocytes (%) (Auto) 8.5 % Monocytes (%) (Auto) 16.6 % Eosinophils (%) (Auto) 0.1 % Basophils (%) (Auto) 0.1 % Neutrophils # (Auto) 10.12 1.4-6.5 K/uL Lymphocytes # (Auto) 1.15 1.2-3.4 K/uL Monocytes # (Auto) 2.26 0.11-0.59 K/uL Eosinophils # (Auto) 0.02 0-0.5 K/uL Basophils # (Auto) 0.01 0-0.2 K/uL RDW Standard Deviation 43.8 36.4-46.3 fL RDW Coefficient of Variation 12.9 11.5-14.5 % Immature Granulocyte % (Auto) 0.1 % Immature Granulocyte # (Auto) 0.02 0.00-0.02 K/uL Sodium Level 140 136-145 mmol/L Potassium Level 3.9 3.5-5.1 mmol/L Chloride Level 108 98-107 mmol/L Carbon Dioxide Level 27 21-32 mmol/L Anion Gap 5.0 3-11 mmol/L Blood Urea Nitrogen 9 7-18 mg/dl Creatinine 0.96 0.60-1.40 mg/dl Est Creatinine Clear Calc Drug Dose 115.7 ml/min Estimated GFR () 116.6 Estimated GFR (Non- 100.6 BUN/Creatinine Ratio 9.6 10-20 Random Glucose 89 70-99 mg/dl Calcium Level 8.8 8.5-10.1 mg/dl Magnesium Level 2.3 1.8-2.4 mg/dl Erythrocyte Sedimentation Rate 63 0-14 mm/hr
--- NOTE | 2017-01-28 18:43 | Progress Note ---
Subjective Date of Service: Jan 28, 2017. Subjective Pt evaluation today including: conversation w/ patient, physical exam, lab review Voiding: no voiding problems patient feels improved. fever less intense last night. suprisingly blood cultures negative, white count greatly improved. urinating well Problem List Medical Problems: (1) SIRS (systemic inflammatory response syndrome) Status: Acute Review of Systems Constitutional: + fever, + chills, + sweats, + fatigue ENT: No hearing loss Respiratory: No cough, No shortness of breath Cardiac: No chest pain Abdomen: + diarrhea, No nausea, No vomiting, No constipation Male : No dysuria, No urinary frequency, No incontinence Objective Vital Signs Date Time Temp Pulse Resp B/P (MAP) Pulse Ox O2 Delivery O2 Flow Rate FiO2 01/28/17 16:00 Room Air 01/28/17 15:21 37.7 90 18 142/72 (95) 95 Room Air 01/28/17 11:50 Room Air 01/28/17 11:05 37.1 83 16 125/74 (91) 100 Room Air 01/28/17 09:06 98 Room Air 01/28/17 07:45 Room Air 01/28/17 07:24 37.1 76 20 119/79 (92) 98 Room Air 01/28/17 04:24 36.7 69 16 116/72 (87) 98 Room Air 01/28/17 04:00 Room Air 01/28/17 00:00 Room Air 01/27/17 23:59 37.9 103 16 126/78 (94) 95 Room Air 01/27/17 20:00 Room Air 01/27/17 19:24 37.1 77 22 119/66 (83) 96 Room Air Physical Exam General Appearance: WD/WN, no apparent distress ENT: hearing grossly normal Respiratory/Chest: no respiratory distress Neurologic/Psychiatric: alert, normal mood/affect, oriented x 3 Skin: normal color, warm/dry, no rash Laboratory Results Last 24 Hours Test 01/28/17 07:24 01/28/17 07:52 White Blood Count 13.58 K/uL Red Blood Count 4.33 M/uL Hemoglobin 13.8 g/dL Hematocrit 40.0 % Mean Corpuscular Volume 92.4 fL Mean Corpuscular Hemoglobin 31.9 pg Mean Corpuscular Hemoglobin Concent 34.5 g/dl Platelet Count 197 K/uL Mean Platelet Volume 11.6 fL Neutrophils (%) (Auto) 74.6 % Lymphocytes (%) (Auto) 8.5 % Monocytes (%) (Auto) 16.6 % Eosinophils (%) (Auto) 0.1 % Basophils (%) (Auto) 0.1 % Neutrophils # (Auto) 10.12 K/uL Lymphocytes # (Auto) 1.15 K/uL Monocytes # (Auto) 2.26 K/uL Eosinophils # (Auto) 0.02 K/uL Basophils # (Auto) 0.01 K/uL RDW Standard Deviation 43.8 fL RDW Coefficient of Variation 12.9 % Immature Granulocyte % (Auto) 0.1 % Immature Granulocyte # (Auto) 0.02 K/uL Sodium Level 140 mmol/L Potassium Level 3.9 mmol/L Chloride Level 108 mmol/L Carbon Dioxide Level 27 mmol/L Anion Gap 5.0 mmol/L Blood Urea Nitrogen 9 mg/dl Creatinine 0.96 mg/dl Est Creatinine Clear Calc Drug Dose 115.7 ml/min Estimated GFR () 116.6 Estimated GFR (Non- 100.6 BUN/Creatinine Ratio 9.6 Random Glucose 89 mg/dl Calcium Level 8.8 mg/dl Magnesium Level 2.3 mg/dl Erythrocyte Sedimentation Rate 63 mm/hr Assessment and Plan bilateral lobar nephronia urine with low colony counts of gnr I will call [facility] and ask them to plate out. 14 day course see me outpatient 2-3 weeks
[2017-01-28 23:45] VITALS: BP 129/78; PULSE 81; TEMP 37; O2SAT 98
[2017-01-29] MEDS: NSS + 20MEQ KCL 1000ML 1,000 ML IV SCH ×2 (02:04→13:08)
[2017-01-29 04:00] VITALS: BP 134/78; PULSE 80; TEMP 37.4; O2SAT 96
[2017-01-29] MEDS: LACTOBACILLUS ACIDOPHILUS (FLORANEX) TAB PO SCH ×2 (07:49→13:08)
[2017-01-29] MEDS: ENOXAPARIN 40 MG/0.4 ML SYR SC SCH (07:49)
[2017-01-29 08:13] VITALS: BP 124/75; PULSE 78; TEMP 37.3; O2SAT 99
[2017-01-29 08:51] LABS: BASO % 0.1 %; BASO ABS # 0.01 K/uL (0-0.2); COMPLETE YES; EOS % 0.7 %; HEMATOCRIT 40.2 % (42-52); IG% 0.2 %; LYMPH % 13.4 %; LYMPH ABS # 1.15 K/uL (1.2-3.4); MEAN CELL VOLUME 91.8 fL (80-100); MEAN CORPUSCULAR HEMOGLOBIN 30.4 pg (25-34); MEAN CORPUSCULAR HGB CONC 33.1 g/dl (32-36); MEAN PLATELET VOLUME 10.9 fL (7.4-10.4); MONO % 15.3 %; NEUT % 70.3 %; PLATELET COUNT 244 K/uL (130-400); RED BLOOD COUNT 4.38 M/uL (4.7-6.1); WHITE BLOOD COUNT 8.59 K/uL (4.8-10.8)
[2017-01-29 09:28] LABS: CALCIUM 8.7 mg/dl (8.5-10.1); CREATININE 0.86 mg/dl (0.60-1.40); POTASSIUM 3.6 mmol/L (3.5-5.1)
[2017-01-29 12:10] VITALS: BP 142/96; PULSE 61; TEMP 36.6; O2SAT 97
[2017-01-29] MEDS: ERTAPENEM IV 1 GM in SODIUM CHLOR 0.9% AD-VAN 50ML 50 ML IV SCH (13:08)
[2017-01-29] MEDS ORDERED: LCTX PO (13:32)
[2017-01-29] MEDS ORDERED: ERTA1INJ IV (13:32)
--- NOTE | 2017-01-29 13:37 | Discharge Instructions ---
Discharge Instructions Date of Service Jan 29, 2017. Admission Reason for Admission: FEVER Discharge Discharge Diagnosis / Problem: bilateral lobar nephronia, pyelonephritis Discharge Goals Goal(s): Decrease discomfort, Improve function Activity Recommendations Activity Limitations: resume your previous activity . Instructions / Follow-Up Instructions / Follow-Up FOLLOWUP WITH FAMILY DOCTOR Pa Albright ON Jan AT 2:45PM. FOLLOWUP WITH INFECTIOUS DISEASE DR.EVAN Lea CARTER IN 10DAYS BEFORE COMPLETION OF IV ABX.([address] [place] [address] ).( NEED REPE[address] CT SCAN BEFORE STOPPING IV ANTIBIOTICS.) FOLLOWUP WITH UROLOGY DR.JENNIFER COOK IN 2-3 WEEKS. ( [address] [place] [address] .) Current Hospital Diet Patient's current hospital diet: AHA Diet (Heart Healthy) Discharge Diet Recommended Diet: AHA Diet (Heart Healthy) Pending Studies Studies pending at discharge: no Medical Emergencies . Who to Call and When: Medical Emergencies: If at any time you feel your situation is an emergency, please call 911 immediately. . Non-Emergent Contact Non-Emergency issues call your: Primary Care Provider . . "Provider Documentation" section prepared by Jeff Calhoun. . VTE Core Measure Inpt VTE Proph given/why not?: Enoxaparin (Lovenox)SQ
[2017-01-29 13:39] VITALS: BP 142/96; PULSE 61; TEMP 36.6; O2SAT 97
--- NOTE | 2017-01-29 19:04 | Progress Note ---
Internal Med Progress Note Date of Service: Jan 29, 2017. Provider Documentation: SUBJECTIVE: no temp spike today no pain no nausea ambulating fine ok for discharge OBJECTIVE: Vital Signs-as noted below Exam: General-alert and awake. Not in distress ENT-normal hearing Neck-no neck masses Lungs-cta b/l no wheezing or crackles Heart-s1 and s2 heard regular rate and rhythm no murmurs Abdomen-soft bowel sounds present non tender no distension Extremities-no erythema no edema Neuro-alert and awake moves extremities Lab data as noted below. ASSESSMENT & PLAN: Sepsis? Pyelonephritis Prostatitis?: bilateral lobar nephronia Presented with Fever, Tachycardia, leukocytosis Lactate: normal, elevated procalcitonin IV fluids Lyme/Influenza negative Hill test and Neisseria negative (Outpatient) currently on iv Zosyn and Levaquin as per patient his was giving prostate massage ct chest unremarkable ct abd/pelvis shows pyelonephritis and possible prostatitis urine growing gm negative bacilli appreciate urology and id inputs changed abx to iv Invanz ID and Urology recommends 14 days of iv abx s/p picc line d/con in invanz followup with ID in 10days before stopping abx followup with urology in 2-3 weeks Hypokalemia: Replace and monitor H/O GERD S/P Jeffrey Fundoplication Stable Not on any meds H/O Insomnia: Previously on amitriptyline (Stopped 6 months ago) Discharged home Vital Signs: Date Time Temp Pulse Resp B/P (MAP) Pulse Ox O2 Delivery O2 Flow Rate FiO2 01/29/17 13:39 36.6 61 18 97 Room Air 01/29/17 12:10 36.6 61 18 142/96 (111) 97 Room Air 01/29/17 11:45 Room Air 01/29/17 08:13 37.3 78 18 124/75 (91) 99 Room Air 01/29/17 07:45 Room Air 01/29/17 04:00 Room Air 01/29/17 04:00 37.4 80 18 134/78 (96) 96 Room Air 01/29/17 00:00 Room Air 01/28/17 23:45 37.0 81 16 129/78 (95) 98 Room Air 01/28/17 20:00 Room Air Lab Results: Results Past 24 Hours Test 01/29/17 08:16 Range/Units White Blood Count 8.59 4.8-10.8 K/uL Red Blood Count 4.38 4.7-6.1 M/uL Hemoglobin 13.3 14.0-18.0 g/dL Hematocrit 40.2 42-52 % Mean Corpuscular Volume 91.8 80-100 fL Mean Corpuscular Hemoglobin 30.4 25-34 pg Mean Corpuscular Hemoglobin Concent 33.1 32-36 g/dl Platelet Count 244 130-400 K/uL Mean Platelet Volume 10.9 7.4-10.4 fL Neutrophils (%) (Auto) 70.3 % Lymphocytes (%) (Auto) 13.4 % Monocytes (%) (Auto) 15.3 % Eosinophils (%) (Auto) 0.7 % Basophils (%) (Auto) 0.1 % Neutrophils # (Auto) 6.04 1.4-6.5 K/uL Lymphocytes # (Auto) 1.15 1.2-3.4 K/uL Monocytes # (Auto) 1.31 0.11-0.59 K/uL Eosinophils # (Auto) 0.06 0-0.5 K/uL Basophils # (Auto) 0.01 0-0.2 K/uL RDW Standard Deviation 43.5 36.4-46.3 fL RDW Coefficient of Variation 12.9 11.5-14.5 % Immature Granulocyte % (Auto) 0.2 % Immature Granulocyte # (Auto) 0.02 0.00-0.02 K/uL Sodium Level 138 136-145 mmol/L Potassium Level 3.6 3.5-5.1 mmol/L Chloride Level 106 98-107 mmol/L Carbon Dioxide Level 27 21-32 mmol/L Anion Gap 6.0 3-11 mmol/L Blood Urea Nitrogen 10 7-18 mg/dl Creatinine 0.86 0.60-1.40 mg/dl Est Creatinine Clear Calc Drug Dose 129.1 ml/min Estimated GFR () 128.4 Estimated GFR (Non- 110.8 BUN/Creatinine Ratio 11.0 10-20 Random Glucose 95 70-99 mg/dl Calcium Level 8.7 8.5-10.1 mg/dl
--- NOTE | 2017-01-29 19:24 | Discharge Summary ---
Discharge Summary Date of Service Jan 29, 2017. Discharge Summary Admission Date: Jan 26, 2017 at 23:03 Discharge Date: Jan 29, 2017 Discharge Disposition: Home Principal Diagnosis: BILATERAL LOBAR NEPHRONIA PYELONEPHRITIS? Secondary Diagnoses/Problems: GERD S/P Jeffrey fundoplication Procedures: CT CHEST: 1. There is no airspace consolidation identified typical for pneumonia. Trace pleural effusions are noted. 2. There is heterogeneously diminished perfusion of the upper pole of the right kidney which is only partially imaged. The appearance suggests pyelonephritis. Correlation with clinical findings and urinalysis will be required. See report of abdominal CT performed concurrently for detailed intra-abdominal findings. CT ABD/PELVIS: 1. Focal heterogeneity and hypoperfusion at the upper pole the right kidney and lower pole the left kidney combined with mild perinephric stranding and bladder wall thickening is most suggestive of lobar nephronia/focal pyelonephritis. Correlate with urinalysis. No renal abscess. Diffuse dilation of the left ureter without evidence of hydronephrosis or obstructing calculus or mass, possibly reactive hypoperistalsis. 2. The prostate is enlarged for the patient's age. Prostatitis is difficult to exclude and would be better evaluated with contrast-enhanced prostate MR. 3. Small amount of free fluid in the pelvis is likely reactive. Consultations: UROLOGY ID Medication Reconciliation New Medications: Ertapenem Sodium (Invanz) 1 Gm Inj 1 GM IV DAILY for 13 Days, VIAL Lactobacillus Acidophilus (Floranex) 1 Tab Tab 4 TAB PO TIDM for 15 Days, TAB Continued Medications: Acetaminophen (Tylenol) 500 Mg Tab 1000 MG PO Q6 PRN for Pain or Fever, TAB Epinephrine (Epipen 2-Star) 0.3 Mg Inj 0.3 MG PO UD PRN for ALLERGIC REACTION Multivitamin (Multivitamin) Tab 1 TAB PO DAILY, TAB Discontinued Medications: Ibuprofen Tab (Advil) 200 Mg Tab 400 MG PO TID PRN for pt, TAB Admission Information HPI (per Admitting provider): Patient is a 36 Yr male with GERD s/p Jeffrey Fundoplication and no other significant PMH presents with history of fever, chills since 2-3 days duration. Patient had diarrhea few days which resolved 2 days ago. Patient visited his PCP 's office and was found to be febrile- 103.5 F and elevated WBC and was sent to ED for further evaluation. Patient states patient has been having Epson Salt baths since November and states his does prostatic massage every other day as he believed that it would help him with enlarged prostate which is not officially diagnosed not he has seen an Urologist in the past. Patient states he had Epididymitis in Set which e was treated with Levaquin. Currently denies any rash, urethral discharge, dysuria, hematuria, weak urinary stream. Also denies any chest pain, SOB, abd pain, cough, wheezing, palpitations, dizziness, nausea, vomiting. Physical Exam (per Admitting): General Appearance: WD/WN, no apparent distress Head: normocephalic, atraumatic Eyes: normal inspection, PERRL, EOMI, sclerae normal ENT: normal ENT inspection, hearing grossly normal Neck: supple, no JVD, trachea midline Respiratory/Chest: chest non-tender, lungs clear, normal breath sounds, no respiratory distress, no accessory muscle use Cardiovascular: regular rate, rhythm, no edema, no murmur, + tachycardia Abdomen/GI: normal bowel sounds, non tender, soft Genitourinary - Male: normal male genitalia, no urethral discharge Back: normal inspection Extremities/Musculoskelatal: normal inspection, no pedal edema 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 Pyelonephritis Prostatitis?: bilateral lobar nephronia Presented with Fever, Tachycardia, leukocytosis Lactate: normal, elevated procalcitonin IV fluids Lyme/Influenza negative Morton test and Neisseria negative (Outpatient) currently on iv Zosyn and Levaquin as per patient his was giving prostate massage ct chest unremarkable ct abd/pelvis shows pyelonephritis and possible prostatitis urine growing gm negative bacilli appreciate urology and id inputs changed abx to iv Invanz ID and Urology recommends 14 days of iv abx s/p picc line d/con in invanz followup with ID in 10days before stopping abx followup with urology in 2-3 weeks Hypokalemia: Replace and monitor H/O GERD S/P Jeffrey Fundoplication Stable Not on any meds H/O Insomnia: Previously on amitriptyline (Stopped 6 months ago) Discharged home Total time spent on discharge = 35MINUTES This includes examination of the patient, discharge planning, medication reconciliation, and communication with other providers. Discharge Instructions Discharge Instructions Date of Service Jan 29, 2017. Admission Reason for Admission: FEVER Discharge Discharge Diagnosis / Problem: bilateral lobar nephronia, pyelonephritis Discharge Goals Goal(s): Decrease discomfort, Improve function Activity Recommendations Activity Limitations: resume your previous activity . Instructions / Follow-Up Instructions / Follow-Up FOLLOWUP WITH FAMILY DOCTOR Pa Albright ON Jan AT 2:45PM. FOLLOWUP WITH INFECTIOUS DISEASE DR.EVAN Lea CARTER IN 10DAYS BEFORE COMPLETION OF IV ABX[address] [place] [address] ).( NEED REPEAT CT SCAN BEFORE STOPPING IV ANTIBIOTICS.) FOLLOWUP WITH UROLOGY DR.JENNIFER COOK IN 2-3 WEEKS. ( [address] [place] [address] .) Current Hospital Diet Patient's current hospital diet: AHA Diet (Heart Healthy) Discharge Diet Recommended Diet: AHA Diet (Heart Healthy) Pending Studies Studies pending at discharge: no Medical Emergencies . Who to Call and When: Medical Emergencies: If at any time you feel your situation is an emergency, please call 911 immediately. . Non-Emergent Contact Non-Emergency issues call your: Primary Care Provider . . "Provider Documentation" section prepared by Jeff Calhoun. . VTE Core Measure Inpt VTE Proph given/why not?: Enoxaparin (Lovenox)SQ
== END 2017-01-29 14:23 | disposition home health service (06) | DRG 690 ==
LOC: C.EDB 17:58 → C.MED 23:03 → ENRESERV 23:21
PROVIDERS: ADMIT Internal Medicine; ATTEND Internal Medicine
PROC: 02HV33Z Insertion of Infusion Device into Superior Vena Cava, Percutaneous Approach (ICD-10-PCS; principal; 2017-01-28)
DX: N12 Tubulo-interstitial nephritis, not specified as acute or chronic (principal); K21.9 Gastro-esophageal reflux disease without esophagitis; Z80.42 Family history of malignant neoplasm of prostate; E87.6 Hypokalemia; R20.8 Other disturbances of skin sensation